=== PATIENT | male | born 1965 | race African-American/Black ===

== ENCOUNTER → 2016-07-31 | Outpatient (CLI) | payer OTHER ==
--- NOTE | ~2016-07-31 | CT57 ---
[facility] A Service of [facility] RADIOLOGY TEXT RESULTS PATIENT: LORETTA PARKS LOCATION: [facility] : 63 UNIT #: [id number] AGE: [address]: Brennon Hussein MD SEX: M ORDER DR: [id number] [facility] [address] [place], [place] [address] [id number] O MR#: [id number] Acc #: [id number] NAME: LORETTA PARKS : 1965 SEX: M STUDY DATE/TIME: 07/31/2016 11:32 UNIT: [facility] ROOM: STUDY DESCRIPTION: CT Chest Wo Cont Attending Physician: Brennon Hussein M.D. Referring Physician: Brennon Hussein M.D. Ordering Physician: Brennon Hussein M.D. Primary Care Physician: Flor Nelson MEDICAL IMAGING REPORT This report is preliminary unless electronic signature is present EXAM CT chest without contrast high-resolution protocol. Date: 07/31/2016 HISTORY 50-year-old male with shortness of breath for 1 year. Mass found on lung. Sarcoidosis. Patient complains of chest pain and tightness for [address] chest without contrast 12/30/2015, CT chest PE protocol 07/23/2015 and 12/18/2006. PROCEDURE 1 mm axial images were obtained at 10 mm increments through the chest without contrast per high-resolution protocol. Prone imaging was performed through the lung bases. Expiratory phase imaging was obtained at the level of the arch, jaleel and bases. Additional 5 mm helical images were obtained to account for respiratory motion degradation. This CT exam was performed with one or more of the following radiation dose reduction techniques: automatic exposure control, adjustment of mA and/or kV according to patient size, and iterative reconstruction. FINDINGS Dense peripheral mass-like consolidations are present in the upper lobes predominately along the pleural margins, right greater left, which appear coarsely calcified. There is abnormal soft tissue thickening with irregular coarse calcifications extending from the mediastinum predominately along the subcarinal and bilateral paratracheal and precarinal regions, along the hilar regions. There is mild central cylindrical bronchiectasis predominately in the upper lobes without mucoid impaction. Extensive calcified and noncalcified nodularity is seen within STS. [facility] A Service of [facility] RADIOLOGY TEXT RESULTS PATIENT: LORETTA PARKS LOCATION: [facility] : 63 UNIT #: [id number] AGE: [address]: Brennon Hussein MD SEX: M ORDER DR: both lungs, predominantly in a bilateral hilar perilymphatic distribution, predominantly along the peripheral pleural margins and studding the fissures. No definite mycetoma or bullous change or honeycombing fibrosis is seen, however. No focal noncalcified airspace consolidation is identified. There is mild generalized background centrilobular and paraseptal emphysematous change. No pericardial effusion or pleural effusion is evident. No evidence of air trapping on prone imaging on expiratory phase imaging. Heart size is within normal limits. Included portion of the upper abdominal organs within normal limits. Osseous structures within normal limits. IMPRESSION 1. Extensive calcified and noncalcified nodularity within both lungs predominately at upper lobe distribution, more confluent peripherally, with some upper lobe cylindrical bronchiectasis or traction bronchiectasis. This, coupled with the presence of coarsely calcified mediastinal bilateral hilar lymph nodes, is consistent with the stated clinical history of sarcoidosis. There is likely progressive massive fibrosis component in the upper lobes, resulting in mild traction bronchiectasis. However, no wayne honeycombing fibrosis is seen at this time. No reversible acute lung consolidation is seen. 2. Mild generalized background paraseptal and centrilobular emphysema. Dictated by... Talia Funk M.D. THIS IS AN ELECTRONICALLY VERIFIED REPORT Talia Funk M.D. at 08/02/2016 7:24 AM HENRRY/abbey TD: 08/01/2016 11:47 JOB #: [id number] MEDICAL IMAGING REPORT Page 1 of 1 COPY
== END | disposition home or self-care (01) ==
LOC: CCAT 11:14
DX: D86.0 Sarcoidosis of lung (principal); J43.2 Centrilobular emphysema; R91.8 Other nonspecific abnormal finding of lung field
CPT/HCPCS: 71250